=== PATIENT | male | born 1980 | race Asian ===

== ENCOUNTER 2017-06-10 20:20 | Emergency (ER) | payer SELFPAY ==
[2017-06-10 20:30] VITALS: BP 149/83
[2017-06-10] MEDS ORDERED: Lidocaine 1% MPF* 2 ML VIAL ONE (20:49)
[2017-06-10] MEDS ORDERED: Lidocaine 1% MPF* 2 ML VIAL INJ ONE (21:29)
--- NOTE | 2017-06-10 21:59 | UC ---
Herberth Tierney Alfonso, scribed for Hao Rhodes MD on 06/10/17 at 2055 . 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 He states the knife was clean. Patient reports bleeding which is currently controlled with a gauze and pressure. He is right hand dominant. He came [place] the [place] this week from [facility]. - History Of Current Complaint Chief Complaint: UCLaceration Stated Complaint: FINGER LAC Time Seen by Provider: 06/10/17 20:38 Hx Obtained From: Patient Laceration Location: Finger - left fifth finger. 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 Severity: Moderate Aggravating Factors: Nothing Related History: Dominant Hand Right - Allergies/Home Medications Allergies/Adverse Reactions: Allergies Allergy/AdvReac Type Severity Reaction Status Date / Time No Known Allergies Allergy Verified 06/10/17 20:29 PMH/Surg Hx/FS Hx/Imm Hx Previously Healthy: Yes - Surgical History Surgical History: None - Family History Known Family History: Positive: Hypertension - Mother - Social History Alcohol Use: Weekly Substance Use Type: None Smoking Status (MU): Never Smoked Tobacco Review of Systems Constitutional: Negative Skin: Other - Positive left 5th figner laceration and bleeding which is currently controlled with a gauze and pressure. All Other Systems Reviewed And Are Negative: Yes Physical Exam Triage Information Reviewed: Yes Vital Signs: Initial Vital Signs Temp 98.9 F 06/10/17 20:26 Pulse 80 06/10/17 20:26 Resp 18 06/10/17 20:26 BP 149/83 06/10/17 20:26 Pulse Ox 100 06/10/17 20:26 Vital Signs Reviewed: Yes - Additional Comments The patient is well-nourished in no acute distress and in no acute pain. The skin is warm and dry and skin color reflects adequate perfusion. 3 cm flap laceration at the tip of the distal left 5 finger. [place] of wound at radial aspect. It is almost circumferential. Subcutaneous. No bony exposure. Does not involve the nail. Intially there was poor hemostasis. HEENT: The head is normocephalic and atraumatic. The pupils are equal and reactive. The conjunctivae are clear and without drainage. Nares are patent and without drainage. Mouth reveals moist mucous membranes and the throat is without erythema and exudate. The external ears are intact. The ear canals are patent and without drainage. The tympanic membranes are intact. Neck is supple with full range of motion and non-tender. There are no carotid bruits. There is no neck vein distension. Respiratory: Chest is non-tender. Lungs are clear to auscultation and breath sounds are symmetrical and equal. Cardiovascular: Heart is regular rate and rhythm. There is no murmur or rub auscultated. Musculoskeletal: There is good capillary refill. Full ROM. Neurological: Patient is alert and oriented to person, place and time. Laceration Repair - Laceration Repair 1 Description: Linear - Flap Laceration Size After Repair: Length (cm) - 3 cm, Width (mm) - 10 mm, Depth (mm ) - 5 mm Contamination/FB Removal: 240 CC normal saline irrigation. Jeanineicleyehuda. 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 He cut his finger with a knife while cutting potatoes. He states the knife was clean. Patient reports bleeding which is currently controlled with a gauze and pressure. He is right hand dominant. He [place] the [place] this [place] from [facility]. The laceration was repaired as described in the procedure note. He was instructed to FOLLOW UP FOR WOUND CHECK IN TWO DAYS AT [facility]. HAVE STITCHES REMOVED IN 10 DAYS. USE IBUPROFEN FOR THE PAIN. The patient is agreeable with this plan. - Differential Dx - Laceration/Wound Differental Diagnoses: Laceration Provider Diagnoses: 3 cm flap laceration at left 5th finger. Discharge - Discharge Plan Condition: Stable Disposition: HOME Patient Education Materials: Care For Your Stitches (ED), Finger Laceration (ED ) Referrals: [facility] [Outside] - 2 Days Additional Instructions: FOLLOW UP FOR WOUND CHECK IN TWO DAYS AT [facility]. HAVE STITCHES REMOVED IN 10 DAYS. USE IBUPROFEN FOR THE PAIN. The documentation as recorded by the Hreberth alcantar Alfonso accurately reflects the service I personally performed and the decisions made by me, Hao Rhodes MD.
== END 2017-06-10 21:50 | disposition home or self-care (01) ==
LOC: UCEAST 20:20
DX: S61.216A Laceration without foreign body of right little finger without damage to nail, initial encounter (principal); W26.0XXA Contact with knife, initial encounter
CPT/HCPCS: 12002; 99201; G0463